=== PATIENT | female | born 1960 | race Caucasian/White ===

== ENCOUNTER → 2016-04-24 | Outpatient (CLI) | payer OTHER | LOC: FIMAGING 09:56 | DX: Z12.31 Encounter for screening mammogram for malignant neoplasm of breast (principal); Z85.3 Personal history of malignant neoplasm of breast | CPT/HCPCS: G0202 ==

== ENCOUNTER → 2017-11-27 | Outpatient (CLI) | payer OTHER | LOC: BRMIMAGING 09:13 | PROVIDERS: ATTEND Surgery | DX: N63.11 Unspecified lump in the right breast, upper outer quadrant (principal); Z80.3 Family history of malignant neoplasm of breast | CPT/HCPCS: 76641-PO ==

== ENCOUNTER → 2017-12-03 | Outpatient (CLI) | payer OTHER ==
[~2017-12-03] MED LIST: BUPIVACAINE 0.5% 30 ML SDV ONE; LIDOCAINE 1% 300 MG/30 ML SDV ONE; THROMBIN (BOVINE) 5,000 UNIT VIAL TP ONE
== END ==
LOC: FIMAGING 07:23
PROVIDERS: ATTEND Internal Medicine Hematology & Oncology
DX: C77.3 Secondary and unspecified malignant neoplasm of axilla and upper limb lymph nodes (principal)

== ENCOUNTER → 2017-12-18 | Outpatient (CLI) | payer OTHER ==
[~2017-12-18] MED LIST changes: -BUPIVACAINE 0.5% 30 ML SDV ONE; +GADOBUTROL 10 ML VIAL IVP ONE; -LIDOCAINE 1% 300 MG/30 ML SDV ONE; -THROMBIN (BOVINE) 5,000 UNIT VIAL TP ONE
== END ==
LOC: FIMAGING 07:20
PROVIDERS: ATTEND Internal Medicine Hematology & Oncology
DX: N63.11 Unspecified lump in the right breast, upper outer quadrant (principal); C77.3 Secondary and unspecified malignant neoplasm of axilla and upper limb lymph nodes; Z80.3 Family history of malignant neoplasm of breast
CPT/HCPCS: 0159T; 77059; A9585; C8908

== ENCOUNTER → 2017-12-31 | Outpatient (CLI) | payer OTHER | LOC: FIMAGING 10:06 | PROVIDERS: ATTEND Internal Medicine Hematology & Oncology | DX: R41.0 Disorientation, unspecified (principal); C50.411 Malignant neoplasm of upper-outer quadrant of right female breast | CPT/HCPCS: A9585 ==

== ENCOUNTER 2018-01-20 12:35 | Observation (INO) | payer OTHER ==
--- NOTE | 2018-01-19 18:32 | PDGENHP ---
History and Physical - Chief Complaint Right breast cancer - History of Present Illness 57yo F with new diagnosis of right breast cancer. She was admitted at [facility] for a PE - chest CT also revealed a riight breast mass. Diagnostic mammogram and ultrasound on 11/27/17 showed a right upper outer ill-defined mass 2.2 x 1.4 x 1.3cm in the 10 o'clock position, 6cm from the nipple. She had a biopsy on which showed normal breast tissue. Lymph node biopsy was significant for infiltrating ductal carcinoma, ER+, WA+ of breast origin. She had a breast MRI on 12/18/17 which showed a nodular spiculated mass in the 9-10 o'clock position , measuring 17 x 20 x 19mm. There was additionally an elongated lobulated area of mass-like enhancement lateral to this lesion in the lateral right breast measuring 48 x 10mm. The MRI showed an enlarged R axillary lymph node with biopsy marker in it. No evidence of contralateral disease. Mother diagnosed with breast cancer in 40s as well as 2 maternal aunts. . LMP 2001. History Information - Allergies/Home Medication List Allergies/Adverse Reactions: BEE STINGS Allergy (Uncoded 01/16/18 14:18) Home Medications: ALPRAZolam [Xanax 1 MG (*)] 1 mg PO DAILY PRN 01/15/18 [Last Taken Unknown] Diclofenac Sodium 1% [Voltaren Gel (*)] 1 roosevelt TP DAILY 01/15/18 [Last Taken Unknown] Levothyroxine [Synthroid 25 mcg (*)] 25 mcg PO DAILY06 01/15/18 [Last Taken Unknown] Lidocaine [Lidoderm] 1 each TP DAILY 01/15/18 [Last Taken Unknown] Ondansetron Odt [Zofran Odt 4 mg (*)] 4 mg PO Q4 PRN 01/15/18 [Last Taken Unknown] Promethazine HCl [Phenergan 25mg (*)] 25 mg PO DAILY PRN 01/15/18 [Last Taken Unknown] Sertraline HCl [Zoloft 50mg (*)] 50 mg PO DAILY 01/15/18 [Last Taken Unknown] Triamterene [Dyrenium 50MG (*)] 25 mg PO DAILY 01/15/18 [Last Taken Unknown] Zolpidem Tartrate [Ambien 5MG (*)] 5 mg PO HS 01/15/18 [Last Taken Unknown] clonIDINE [Catapres-Tts (*)] 0.3 mg TD MO 01/15/18 [Last Taken Unknown] Lovenox 01/16/18 [Last Taken Unknown] I have personally reviewed and updated: family history, medical history, social history, surgical history Past Medical History: Alcohol use. Anxiety. DVT and PE. Hyperlipidemia. Hypertension. Hypothyroidism. IgG deficiency. Lyme disease. - Surgical History Additional surgical history: Elbow surgery 1989. Wrist surgery 2010 - Family History Additional family history: Breast cancer. Malignant melanoma - Social History Smoking Status: Never smoked Additional social history: Drinks alcohol - currently. Non-smoker. No recreational drug use Review of Systems Review of Systems: ROS: 10pt was reviewed & negative except for what was stated in HPI & below Physical Exam Physical Exam: Gen: WDWN woman NAD HEENT: NCAT, no hearing deficits, PER, MMM Resp: CTAB, no increased WOB CV: RRR Breast: palpable right breast mass upper outer. No other breast masses. 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 Discussed risks of surgery including heart attack, stroke, blood clots or . Discussed risk of infection, bleeding, damage to surrounding structures, lymphedema or need for additional procedures. Overnight observation. Will receive antibiotics OCTOR. All questions answered to patient' s satisfaction
[2018-01-20] MEDS ORDERED: ceFAZolin 2 GM/DEXTROSE 100 ML IV ONE (14:01)
[2018-01-20] MEDS ORDERED: LR 1,000 ML IV ONE (14:03)
[2018-01-20] MEDS ORDERED: BUPIVACAINE 0.5% 30 ML SDV ONE (14:22)
--- NOTE | 2018-01-20 14:59 | CPEKG ---
Test Reason : OPEN Blood Pressure : / mmHG Vent. Rate : 060 BPM Atrial Rate : 060 BPM P-R Int : 173 ms QRS Dur : 098 ms QT Int : 463 ms P-R-T Axes : 042 032 028 degrees QTc Int : 463 ms Sinus rhythm Low voltage, precordial leads Confirmed by Christopher Khan ([id number]) on 01/20/2018 2:59:13 PM Referred By: Confirmed By:Christopher Khan
--- NOTE | 2018-01-20 15:18 | GCON ---
INTERNAL MEDICINE CONSULT DATE OF CONSULTATION: 01/20/2018 REFERRING PHYSICIAN: Pauly Chance MD REASON FOR REFERRAL: Medical management in a patient admitted with breast cancer and mastectomy. HISTORY OF PRESENT ILLNESS: The patient is a 57-year-old with a new diagnosis of right-sided breast cancer. She is being admitted today for a mastectomy by Dr. Chance. We being consulted for multiple medical issues. Briefly, she was admitted at [facility] for pulmonary embolism. Her chest CT-A also rev ealed a right breast mass, and diagnostic mammogram and ultrasound verified this on 11/27/2017. She had a biopsy at the end of November; however, lymph node biopsy was significant for infiltrating lu reece carcinoma, ER and NM positive. She subsequently had a breast MRI on December 25, which verified a couple of masses and an enlarged right axillary lymph node. Currently, she is feeling pretty well. Unfortunately, she tripped over a table [facility] and has an ecchymosis on her left eye, and a skin tear and ecchymosis on her right forearm. She, otherwise, feels well. She has had no recent illnesses, fevers, chills. Her weight is been stable. She denies any chest pain, shortness of breath, or cough. She denies any abdominal complaints. Sh e denies lower extremity edema. She has chronic joint pain, which is unchanged. No other neurologic complaints or bone pain. REVIEW OF SYSTEMS: A 10-point review of systems was done and is negative, except as stated in the HP I. PAST MEDICAL HISTORY: 1. Hypothyroidism, on replacement. 2. History of IgG deficiency, currently on IVIG, which has been held until her cancer issues have be en resolved. She sees an road production general manager in [place], Dr. Barbosa. 3. History of alcohol abuse/use. She has cut down to 2 ounces per day. 4. Anxiety, PTSD. She is on a number of medications, including Zoloft, Xanax, and propranolol as ne eded. 5. Insomnia, on Ambien. 6. History of hypertension, currently on clonidine patch. She takes triamterene as needed for fluid overload. 7. Dyslipidemia. 8. Gastroesophageal reflux disease. 9. Pulmonary embolism, on chronic anticoagulation. She had failed Xarelto and has currently been on Lovenox b.i.d. for the last 6 months. She is followed by Dr. Melendez as an outpatient. 10. Chronic pain, currently on Lidoderm patch, as well as diclofenac ointment. CURRENT MEDICATIONS: Please see medication reconciliation form. ALLERGIES: To bee stings. SOCIAL HISTORY: She denies current tobacco use. She does use marijuana in this CBD form. She drink s 2 ounces per day and admits to trying to cut down. FAMILY HISTORY: Significant for breast cancer in her mother at age 40 and an aunt. PHYSICAL EXAMINATION: VITAL SIGNS: She is afebrile. Heart rate 66, blood pressure 119/92, respirat ions. She is 96% on room air. GENERAL: She is a slightly overweight 57-year-old. She is in no dis tress. She is alert and oriented. Her speech is clear and fluent. HEENT: Pupils equal. Extraocul ar movements intact. Mucous membranes moist. Oropharynx is clear. NECK: Supple. No adenopathy. HEART: Regular rate and rhythm. No obvious murmur, gallop, or rub. LUNGS: Clear bilaterally witho ut wheeze or rhonchi. ABDOMEN: Soft, obese, nontender. No masses. EXTREMITIES: No clubbing, cyan osis, or edema. MUSCULOSKELETAL: No joint deformities or obvious effusions. NEUROLOGIC: She is mo ving all 4 extremities. She is alert and oriented. Her speech is fluent. SKIN: She does have an a brasion/skin tear and ecchymosis on her right forearm. She also has ecchymosis on her left eye. PSY CHIATRIC: Her mood is appropriate. ASSESSMENT/PLAN: A 57-year-old admitted with right breast invasive ductal carcinoma with lymph node involvement is admitted for bilateral mastectomy with reconstruction, right axillary dissection, and left sentinel node biopsy. She has a number of medical issues we will follow while she is here most importantly. 1. History of pulmonary embolism. Currently on Lovenox after failing of Xarelto as an outpatient. She has held her Lovenox for the last 24 hours preoperatively. Likely would like to resume this as s oon as possible per Dr. Chance either tonight or tomorrow morning. 2. Hypothyroidism, on replacement. Continue her usual dose. 3. History of IgG deficiency. Currently followed by an road production general manager in [place] where she gets IVIG infusions. This is on hold until she completes her cancer workup and will defer to Dr. Al willis that can be resumed. He will likely need to evaluate her labs. 4. Alcoholism. She states that she has cut down to 2 ounces daily and denies any acute withdrawal s ymptoms. We will monitor her closely for active withdrawal while she is here. 5. Anxiety and posttraumatic stress disorder. Currently stable on Zoloft and Xanax. She recently d id titrate off a number of other medications. 6. Chronic insomnia. On Ambien. 7. Hypertension. Slightly elevated. We will continue her usual medications when she is able to eat . 8. Dyslipidemia, mild. 9. Gastroesophageal reflux disease, asymptomatic. 10. Cyclic vomiting. Currently takes Phenergan and Zofran on an as-needed basis. Thank you for the consultation. We will continue to follow the patient during her hospitalization. /[id number]/MODL
[2018-01-20] MEDS ORDERED: MIDAZOLAM 2 MG/2 ML VIAL IVP ONE ×2 (15:45→17:31)
--- NOTE | 2018-01-20 17:16 | PDANEPAE ---
ANE History of Present Illness BL mastectomies left sentinel node right axillary node dissection ANE Past Medical History - Cardiovascular History Hx Hypertension: Yes Hx Arrhythmias: No Hx Chest Pain: No Hx Coronary Artery / Peripheral Vascular Disease: No Hx CHF / Valvular Disease: No Hx Palpitations: No Cardiovascular History Comment: high chol. pcp monitors - Pulmonary History Hx COPD: No Hx Asthma/Reactive Airway Disease: No Hx Recent Upper Respiratory Infection: No Hx Oxygen in Use at Home: No Hx Sleep Apnea: No Sleep Apnea Screening Result - Last Documented: Negative Pulmonary History Comment: hx of PE's first week in october 2017- on lovenox - Neurologic History Hx Cerebrovascular Accident: No Hx Seizures: Yes Hx Dementia: No Neurologic History Comment: unknown reason for seizures- last seizure has been at least 6 months- 1 year ago - Endocrine History Hx Diabetes: No Endocrine History Comment: hypothyroidism - Renal History Hx Renal Disorders: Yes Renal History Comment: "dented kidney" from a previous surgery- functions normally - Liver History Hx Hepatic Disorders: No - Neurological & Psychiatric Hx Hx Neurological and Psychiatric Disorders: Yes Neurological / Psychiatric History Comment: anxiety - Cancer History Hx Cancer: Yes Cancer History Comment: breast cancer currently - Congenital Disorder History Hx Congenital Disorders: No - GI History Hx Gastrointestinal Disorders: No - Other Health History Other Health History: lyme disease- dx'd 2013. wears glasses for driving only - Chronic Pain History Chronic Pain: Yes (lower back) - Surgical History Prior Surgeries: right knee scope surgery 2013 ANE Review of Systems Review of Systems: - Exercise capacity METS (RN): 3 METS ANE Patient History - Allergies Allergies/Adverse Reactions: BEE STINGS Allergy (Uncoded 01/16/18 14:18) - Home Medications Home Medications: ALPRAZolam [Xanax 1 MG (*)] 1 mg PO DAILY PRN 01/15/18 [Last Taken 01/20/18] Diclofenac Sodium 1% [Voltaren Gel (*)] 1 roosevelt TP DAILY 01/15/18 [Last Taken ] Levothyroxine [Synthroid 25 mcg (*)] 25 mcg PO DAILY06 01/15/18 [Last Taken ] Lidocaine [Lidoderm] 1 each TP DAILY 01/15/18 [Last Taken 01/20/18] Ondansetron Odt [Zofran Odt 4 mg (*)] 4 mg PO Q4 PRN 01/15/18 [Last Taken ] Promethazine HCl [Phenergan 25mg (*)] 25 mg PO DAILY PRN 01/15/18 [Last Taken 1 Week Ago ~01/13/18] Sertraline HCl [Zoloft 50mg (*)] 50 mg PO DAILY 01/15/18 [Last Taken 01/20/18] Triamterene [Dyrenium 50MG (*)] 25 mg PO DAILY 01/15/18 [Last Taken Unknown] Zolpidem Tartrate [Ambien 5MG (*)] 5 mg PO HS 01/15/18 [Last Taken 01/19/18] clonIDINE [Catapres-Tts (*)] 0.3 mg TD MO 01/15/18 [Last Taken Unknown] Enoxaparin [Lovenox 100 MG (*)] 100 mg SQ Q12H 01/16/18 [Last Taken 01/19/18] - NPO status NPO Status: no food or drink >8 hours NPO Since - Liquids (Date): 01/20/18 NPO Since - Liquids (Time): 12:00 NPO Since - Solids (Date): 01/20/18 NPO Since - Solids (Time): 07:30 - Anes Hx Anes Hx: no prior problems - Smoking Hx Smoking Status: Never smoked Marijuana use: Yes - Alcohol Use Alcohol Use: Other (2 oz/day) - Family Anes Hx Family Hx Anesthesia Complications: none ANE Labs/Vital Signs - Labs Result Diagrams: 01/20/18 14:35 - Vital Signs Blood Pressure: 119/92 Heart Rate: 66 Respiratory Rate: 16 O2 Sat (%): 96 Height: 175.26 cm Weight: 95.254 kg ANE Physical Exam - Airway Neck exam: FROM Mallampati Score: Class 2 Mouth exam: normal dental/mouth exam - Pulmonary Pulmonary: no respiratory distress, no rales or rhonchi - Cardiovascular Cardiovascular: regular rate and rhythym, no murmur, rub, or gallop - ASA Status ASA Status: III ANE Anesthesia Plan Anesthesia Plan: general endotracheal anesthesia
[2018-01-20] MEDS ORDERED: THROMBIN (BOVINE) 20,000 UNIT SPRAY TP ONE ×2 (17:36→19:35)
[2018-01-20] MEDS ORDERED: fentaNYL 250 MCG/5 ML INJ ONE ×2 (17:48→19:48)
[2018-01-20] MEDS ORDERED: PROPOFOL/EMULSION 500 MG/50 ML BOTTLE IV ONE ×2 (17:49)
--- NOTE | 2018-01-20 18:08 | PDHPUP ---
History & Physical Update H&P update statement: This history and physical update is based on an assessment of the patient which was completed after admission or registration (within 24 hours), but prior to the surgery/procedure. H&P update: H&P reviewed & patient examined, no change in patient's condition since H&P completed, changes noted (fell, hematoma right arm. will evacuate and place vac)
[2018-01-20] MEDS ORDERED: fentaNYL 100 MCG/2 ML INJ ONE ×2 (18:37)
[2018-01-20] MEDS ORDERED: DEXAMETHASONE 4 MG/ML VIAL ONE ×2 (18:48)
[2018-01-20] MEDS ORDERED: GLYCOPYRROLATE 0.2 MG/1 ML VIAL ONE (18:48)
[2018-01-20] MEDS ORDERED: ONDANSETRON 4 MG/2 ML VIAL ONE (18:48)
[2018-01-20] MEDS ORDERED: HYDROmorphONE/DILAUDID 2 MG/ML INJ ONE (18:52)
[2018-01-20] MEDS ORDERED: LABETALOL HCL 5 MG/ML 20 ML MDV ONE (18:57)
[2018-01-20] MEDS ORDERED: PROPOFOL 200 MG/20 ML VIAL ONE ×2 (19:48)
[2018-01-20] MEDS ORDERED: ONDANSETRON 4 MG/2 ML VIAL IVP PRN ×2 (20:14→20:57)
[2018-01-20] MEDS ORDERED: ACETAMINOPHEN 325 MG TAB PO PRN (20:14)
[2018-01-20] MEDS ORDERED: ONDANSETRON DISINTEGRATING 4 MG TAB PO PRN (20:14)
[2018-01-20] MEDS ORDERED: diphenhydrAMINE 25 MG CAP PO PRN (20:14)
--- NOTE | 2018-01-20 20:14 | POSTOPPROG ---
Post Op Note Date of Operation: 01/23/18 Surgeon: Paris Andrea Neurology Professor: ignacio Anesthesiologist: koko Anesthesia: GET(General Endotracheal) Pre-op Diagnosis: R breast metastatic cancer. Traumatic hematoma Post-op Diagnosis: same Indication: 57yo F with breast cancer and traumatic hematoma Procedure: B mastectomy. L SLN bx. R ax dissection. Debride skin/soft tissue with vac Findings: wound measures 5x5x 1cm Inf/Abcess present in the surg proc area at time of surgery?: Yes Depth: Superfical (Skin SQ) EBL: 50-100 Drains: Abel Dominguez Specimen(s): R breast R axillary contents L breast L SLN
[2018-01-20] MEDS ORDERED: ALPRAZolam 1 MG TAB PO PRN (20:17)
[2018-01-20] MEDS ORDERED: PROMETHAZINE HCL 25 MG TAB PO PRN (20:17)
[2018-01-20] MEDS ORDERED: NALOXONE HCL 0.4 MG/ML INJ IVP PRN (20:57)
[2018-01-20] MEDS ORDERED: HYDROmorphONE/DILAUDID 2 MG/ML INJ IVP PRN (20:57)
[2018-01-20] MEDS ORDERED: fentaNYL 100 MCG/2 ML INJ IVP PRN (20:57)
[2018-01-20] MEDS ORDERED: hydrALAZINE 20 MG/ML VIAL IVP PRN (21:05)
[2018-01-20] MEDS: HYDROCODONE/APAP 5/325 TAB PO PRN (22:16)
[2018-01-21] MEDS: ZOLPIDEM TARTRATE 5 MG TAB PO SCH ×2 (00:14→23:47)
[2018-01-21] MEDS: ENOXAPARIN 100 MG/ML SYR SC SCH ×2 (00:14→12:31)
[2018-01-21] MEDS: LEVOTHYROXINE 25 MCG TAB PO SCH (05:25)
[2018-01-21] MEDS: HYDROCODONE/APAP 5/325 TAB PO PRN (05:28)
[2018-01-21] MEDS: SERTRALINE HCL 50 MG TAB PO SCH (08:05)
[2018-01-21] MEDS ORDERED: TRIAMTERENE 50 MG CAP PO SCH (09:00)
--- NOTE | 2018-01-21 09:44 | SOAPPROG ---
SOAP Progress Note Assessment/Plan: Subjective: Annabelle is a 57 year old female POD #1 s/p bilateral mastectomy with L sentinel lymph node resection and R axillary dissection. She also underwent a R arm hematoma debridement. The patient is awake and alert and reports an uneventful night. She currently denies nausea, vomiting, fever. She states her pain is well controlled with IV morphine (last dose 2 mg @ 07:30am and PO [place] (last dose 10mg @ 05:30am). She denies having a BM today but has positive flatus. She reports no problem with urination. She is ambulating without assistance. She ate "a small breakfast" this morning. Objective: Vital signs stable throughout night per nursing. Most recent vitals @ 08:30am: BP: 103/69, Pulse 67, SpO2 98% RA, Temp: 36.5 C. Lungs CTAB Regular rate Dressings are clean and dry without surrounding erythema. No purulent discharge or drainage noted. Her right arm lesion has a wound vac attached to suction with no surrounding erythema and no fluid output. She has [address] all draining serosanguinous fluid. R HIGINIO drain output #1: 60mL. R Breast HIGINIO drain output: 110mL. L breast HIGINIO drain output: 15mL. Assessment: 57 y/o F POD #1 s/p bilateral mastectomy with L sentinel lymph node resection and R axillary dissection. R arm hematoma debridement. Depression Alcohol abuse Hypothyroid History of Pulmonary embolysm Plan: 1. Plan to wean off IV morphine and attempt PO pain control with Hydrocodone/ APAP. 2. Zofran 4mg PO q4h PRN nausea. 2. Continue home medications: -Sertraline 50mg PO QD -Zolpidem 5mg PO qHS -Levothyroxine 25mcg PO QD -Diclofenac topical gel QD -Clonidine .3mg TD MO -Lovenox 100mg SC q12h. HCTZ Traumatic arm hematoma - measured 5x5x1 cm at surgery 01/21/18 09:16 01/21/18 15:00 01/21/18 15:02 Objective: Vital Signs Temp Pulse Resp BP Pulse Ox 36.5 C 67 14 103/69 98 01/21/18 08:08 01/21/18 08:08 01/21/18 08:08 01/21/18 08:08 01/21/18 08:08 Laboratory Results 01/20/18 14:35 01/20/18 01/21/18 01/22/18 05:59 05:59 05:59 Intake Total 1750 Output Total 435 Balance 1315 ICD10 Worksheet Patient Problems: Problems Problem Status Onset Abdominal pain Acute Dehydration Acute Nausea & vomiting Acute
[2018-01-21] MEDS: DICLOFENAC SODIUM 1% 100 GM GEL TP SCH (10:21)
[2018-01-21] MEDS: LIDOCAINE 4%/MENTHOL 1% PATCH TD SCH (10:21)
[2018-01-21] MEDS: oxyCODONE IR 5 MG TAB PO PRN ×4 (10:53→21:11)
[2018-01-21] MEDS ORDERED: HYDROCHLOROTHIAZIDE 25 MG TAB PO PRN (15:02)
--- NOTE | 2018-01-21 15:37 | GOP ---
DATE OF OPERATION: 12/10/2017 SURGEON: Pauly Chance MD DIRECTOR OF AGRICULTURE: ESPERANZA Wilson ANESTHESIA: General. ANESTHESIOLOGIST: Annabelle Moya MD PREOPERATIVE DIAGNOSIS: 1. Right breast lower inner cancer with positive axillary nodes. 2. Traumatic wound with retained hematoma, right forearm. POSTOPERATIVE DIAGNOSIS: 1. Right breast lower inner cancer with positive axillary nodes. 2. Traumatic wound with retained hematoma, right forearm. PROCEDURE PERFORMED: 1. Bilateral mastectomy. 2. Left sentinel lymph node. 3. Right axillary dissection. 4. Evacuation of traumatic wound hematoma. FINDINGS: She had palpable lymphadenopathy on the right side. The wound measures 5 x 5 x 1 cm down to the level of the fascia. SPECIMENS: 1. Left breast, short superior, long lateral. 2. Left sentinel lymph node. 3. Right breast, short superior, long lateral. 4. Additional right upper outer breast tissue, ink knapp new margin. 1. Right axillary contents. 5. ESTIMATED BLOOD LOSS: 100 cc. INDICATIONS: The patient is a 57-year-old woman who developed breast cancer. Her workup included positive axillary nodes but negative for distant metastatic disease. A few days prior to surgery, she fell and developed a hematoma on her right forearm. DESCRIPTION OF PROCEDURE: The patient was brought into the operating room, placed supine on the table, and general anesthesia was administered. Her bilateral breast axillae were prepped and draped in the usual sterile fashion. I made an ellipse around her left chest. I created superior and inferior skin flaps. My dissection occurred to the clavicle, sternum, inframammary fold and anterior axillary line. I removed the breast from the pectoralis fascia. It was marked short superior, long lateral. Hemostasis was achieved. I used a gamma probe to identify the left sentinel lymph node. I broke into the axillary space and carefully dissected until I found the node that was hot. I excised this. The background was very quiet. Hemostasis was achieved. A drain was placed and sutured in place with 3-0 nylon. The skin was closed with 3-0 Vicryl, followed by 4-0 Monocryl. Next, in a similar fashion, I began my dissection on the right side. Again, my dissection occurred to the clavicle, sternum, inframammary fold, anterior axillary line. I removed the breast from the pectoralis fascia. When I felt the skin flaps, there was an additional area in the upper outer quadrant that felt thick. I excised this and inked the new margin black. Next, I began my axillary dissection. I was able to identify the long thoracic nerve, the thoracodorsal nerve bundle and protect these from harm. I grasped the russell tissue that was bulky and carefully excised this. This was submitted to Pathology for permanent. Hemostasis achieved. I placed a drain into her axilla as well as one under the skin flaps. Each was sewn into place with 3-0 nylon. The skin was closed with 3-0 Vicryl, followed by 4-0 Monocryl. Sterile silver Mepilex dressings were applied. Next, I prepped her right arm with Betadine and draped it with towels. I used cautery to excise the retained hematoma. A large amount of old clotted blood was expressed. The wound measures 5 x 5 x 1 cm. It goes down to the fascia. Hemostasis was achieved with electrocautery. A wound VAC was placed. The patient was awakened in the operating room, extubated, transferred to PACU in stable condition. /[id number]/MODL MTDD
--- NOTE | 2018-01-21 15:55 | ASMTCMCOM ---
CM Note CM Note Notes: Patient plan of care reviewed with surgeon. Lenora Belkys is also following the patient. She requires a wound vac to right forearm which the order to [facility] was initiated but required additional documentation from physician. New op report faxed to [facility] approval pending. HHC via [facility] upon discharge to home. CM to follow. Plan: Home with [facility] Date Signed: 01/21/2018 03:54 PM Electronically Signed By:Vickie Reyes RN
--- NOTE | 2018-01-21 16:46 | HOSPPROG ---
Hospitalist Progress Note Assessment/Plan: #Right mastectomy: POD#1. Care per Dr. Cahnce #Acute pain: not controlled this morning, change to oxycodone #Pulmonary embolism: treatment-dose Lovenox #Etoh dependence: counseled on cessation. No signs withdrawal #Anxiety/PTSD: Xanax, Zoloft #Hypothyroidism: LT4 #HTN: clonidine patch #GERD:stable Please call if questions Subjective: pain 10/17 right breast Objective: Vital Signs Temp Pulse Resp BP Pulse Ox 36.9 C 63 18 133/88 H 97 01/21/18 16:00 01/21/18 16:00 01/21/18 16:00 01/21/18 16:00 01/21/18 16:00 Laboratory Results 01/20/18 14:35 01/20/18 01/21/18 01/22/18 05:59 05:59 05:59 Intake Total 1750 Output Total 435 55 Balance 1315 -55 - Time Spent With Patient Time Spent with Patient: greater than 25 minutes Time Spent with Patient: Greater than 25 minutes spent on this patients care, greater than 50% of time spent counseling, educating, and coordinating care regarding the above mentioned plan. - Physical Exam Constitutional: no apparent distress Eyes: PERRL Ears, Nose, Mouth, Throat: moist mucous membranes Cardiovascular: regular rate and rhythym Respiratory: no respiratory distress Gastrointestinal: normoactive bowel sounds Genitourinary: No chavarria in urethra Musculoskeletal: full muscle strength, other (right breast surgical incision dressed) Neurologic: AAOx3, CN II-XII Intact, other (no tremor or tongue fasiculations) Psychiatric: thought process linear ICD10 Worksheet Patient Problems: Problems Problem Status Onset Abdominal pain Acute Dehydration Acute Nausea & vomiting Acute
[2018-01-21] MEDS: CEPACOL LOZENGE PO PRN ×2 (17:09→23:47)
[2018-01-21] MEDS ORDERED: LORazepam 1 MG TAB PO PRN (17:14)
[2018-01-21] MEDS ORDERED: LORazepam 2 MG/ML INJ IVP PRN (17:14)
[2018-01-21] MEDS ORDERED: FLUMAZENIL 0.5 MG/5 ML MDV IVP PRN (17:14)
[2018-01-21] MEDS: THIAMINE HCL 500 MG in NS 100 ML IV SCH (17:51)
[2018-01-21] MEDS ORDERED: MAGNESIUM HYDROXIDE 30 ML UDCUP PO PRN (22:17)
[2018-01-21] MEDS ORDERED: POLYETHYLENE GLYCOL 3350 17 GM PKT PO PRN (22:17)
[2018-01-21] MEDS ORDERED: BISACODYL 10 MG SUPP PR PRN (22:17)
[2018-01-21] MEDS ORDERED: LACTULOSE 20 GM/30 ML UDCUP PO PRN (22:17)
[2018-01-22] MEDS: ENOXAPARIN 100 MG/ML SYR SC SCH ×2 (00:58→12:05)
[2018-01-22] MEDS: oxyCODONE IR 5 MG TAB PO PRN ×3 (00:58→10:19)
[2018-01-22] MEDS: LEVOTHYROXINE 25 MCG TAB PO SCH (06:21)
[2018-01-22 08:36] VITALS: BP 114/80
[2018-01-22] MEDS ORDERED: SENNOSIDES/DOCUSATE SODIUM TAB PO SCH (09:00)
[2018-01-22] MEDS: LIDOCAINE 4%/MENTHOL 1% PATCH TD SCH (09:51)
[2018-01-22] MEDS: DICLOFENAC SODIUM 1% 100 GM GEL TP SCH (09:51)
[2018-01-22] MEDS: SERTRALINE HCL 50 MG TAB PO SCH (10:08)
[2018-01-22] MEDS: THIAMINE HCL 500 MG in NS 100 ML IV SCH (10:09)
--- NOTE | 2018-01-22 10:19 | PDIAF ---
- Diagnosis Diagnosis: breast cancer and R arm wound Code Status: Full Code - Medication Management Discharge Medications: electronically signed and located in the Home Medication List. - Orders Services needed: Home Care, Registered Nurse Home Care Face to Face: I certify that this patient was under my care and that I had the required [id number] encounter meeting the encounter requirements on the discharge day. My findings support the fact that the patient is homebound as defined in Home Care Face to Face Continued: CMS Chapter 7 Medicare Benefits Manual 30.1.1 , The condition of the patient is such that there exists a normal inability to leave home and consequently, leaving home would require a considerable and taxing effort. Diet Recommendation: no restrictions on diet Wound Care Instructions: check and record HIGINIO drain 2 x per day. I will remove when less than 20 cc/day x 2 days in a row. Change wound vac 3x per week. NO BP or blood draw R arm Additional Instructions: Librium taper per Dr. Parsons Anticoagulation for blood clot per Dr. Melendez. Call triage at [facility] [phone] to get prescription for anticoagulation Check and record HIGINIO drain 2x per day I will remove when less than 20 ml/24 hours for 2 days in a row Wound vac change 3x per week - Follow Up Care Current Providers and Referrals: JANAE PARSONS [Other] Pauly Chance MD [Medical Doctor] - (Paris Andrea 01/28/2018 at 10:45)
--- NOTE | 2018-01-22 10:30 | SOAPPROG ---
SOAP Progress Note Assessment/Plan: Subjective: Annabelle is a 57 year old female POD #2 s/p bilateral mastectomy with L sentinel lymph node resection and R axillary dissection. She also underwent a R arm hematoma debridement. The patient is awake and alert and reports an uneventful night. She reports her pain is well controlled. She is currently taking Oxycodone PO 15mg q4H last dose 6am. Current pain 5/10. No complain of nausea, vomiting, chills or fever. Objective: Vital signs stable throughout night per nursing. Most recent vitals @ 05:30am: BP: 126/88, Pulse 67, Resp 16, SpO2 95% RA, Temp: 36.6 C. Lungs CTAB Regular rate Right dressing showing some scant fluid on inferior, lateral margin. Wound without surrounding erythema. No purulent discharge or drainage noted. Hematoma superior to R incision remains unchanged since last night. Her right arm lesion has a wound vac attached to suction with no surrounding erythema and no fluid output. She has [address] all draining serosanguinous fluid. R HIGINIO drain output #1: 60mL. R Breast HIGINIO drain output: 85mL. L breast HIGINIO drain output: 0mL. Assessment: 57 y/o F POD #1 s/p bilateral mastectomy with L sentinel lymph node resection and R axillary dissection. R arm hematoma debridement. Depression Alcohol abuse Hypothyroid History of Pulmonary embolism Plan 1. Discharge today. 2. Rx Oxycodone 5mg, 1-3 tabs PO prn pain #60 3. Continue home medications: -Sertraline 50mg PO QD -Zolpidem 5mg PO qHS -Levothyroxine 25mcg PO QD -Diclofenac topical gel QD -Clonidine .3mg TD MO -Lovenox 100mg SC q12h. HCTZ Traumatic arm hematoma - measured 5x5x1 cm at surgery Objective: Vital Signs Temp Pulse Resp BP Pulse Ox 36.8 C 84 16 114/80 93 01/22/18 08:00 01/22/18 08:00 01/22/18 08:00 01/22/18 08:00 01/22/18 08:00 Laboratory Results 01/20/18 14:35 01/21/18 01/22/18 01/23/18 05:59 05:59 05:59 Intake Total 1750 350 Output Total 435 145 Balance 1315 205 ICD10 Worksheet Patient Problems: Problems Problem Status Onset Nausea & vomiting Acute Abdominal pain Acute Dehydration Acute
--- NOTE | 2018-01-22 10:31 | ASDISCHSUM ---
Discharge Information Plan Status:Home with Home Health Medically Cleared to Leave:01/21/2018 Discharge Date:01/22/2018 02:05 PM D/C Disposition:Home Health Service ADT D/C Disposition:Home Health Service Projected Discharge Date:01/22/2018 11:00 AM Transportation at D/C: Discharge Delay Reason: Follow-Up Date:01/22/2018 11:00 AM Discharge Slot: Final Diagnosis: Placement Information Referral Type:*Home Health Care Services Referral ID:[id number] Provider Name:[facility] Address 1:[address] [place] [address] Address 2: City:[place] Selection Factors: State:[place] Patient Contact Information Contact Name:AMNA Relationship: Address:[facility] [address] [place]:[facility] Phone: State/Zip Code:[place] [address] Email: Financial Information Financial Class:BC Primary Plan Desc:[facility] Primary Plan Number:[id number] Secondary Plan Desc: Secondary Plan Number: Assessment Information LACE LACE Length of stay for Answers: 1 day current admission Comorbidities - select Answers: Any tumor (including all that apply lymphoma or leukemia) Opioid dependence / Chronic pain Other Notes: Hx of DVT/PE; HTN; Lyme disease # of Emergency department Answers: 0 visits in the last 6 months Social determinants Answers: History of substance abuse (ETOH, street drugs, prescription drugs, etc.) Mental health diagnosis (anxiety, depression, pers onality disorders, etc.) Score: 14 Date Signed: 01/22/2018 10:30 AM Electronically Signed By:Vickie Reyes RN [facility] CM Progress Note CM Note CM Note Notes: Patient plan of care reviewed with surgeon. Lenorajim Rizvi is also following the patient. She requires a wound vac to right forearm which the order to [facility] was initiated but required additional documentation from physician. New op report faxed to [facility] approval pending. [facility] upon discharge to home. CM to follow. Plan: Home with [facility] Date Signed: 01/21/2018 03:54 PM Electronically Signed By:Vickie Reyes RN [facility] CM Progress Note CM Note CM Note Notes: Patient has been medically cleared for discharge to home. [facility] to follow for wound vac dressing changes. Patient has f/u with Dr. Chance set up. Address confirmed with patient. [facility] wound vac delivered to room. Forms signed per patient and faxed to [facility] with confirmed receipt CM available shou;lld other needs arise. Plan: Home with HH and wound vac. Date Signed: 01/22/2018 10:39 AM Electronically Signed By:Vickie Reyes RN Intervention Information
--- NOTE | 2018-01-22 10:40 | ASMTCMCOM ---
CM Note CM Note Notes: Patient has been medically cleared for discharge to home. [facility] to follow for wound vac dressing changes. Patient has f/u with Dr. Chance set up. Address confirmed with patient. [facility] wound vac delivered to room. Forms signed per patient and faxed to [facility] with confirmed receipt CM available shou;lld other needs arise. Plan: Home with HHC and wound vac. Date Signed: 01/22/2018 10:39 AM Electronically Signed By:Vickie Reyes RN
--- NOTE | 2018-01-23 19:14 | GDS ---
REASON FOR ADMISSION: 57yo with R breast cancer admitted for surgical intervention, observations, pain control. DIAGNOSES: 1. Breast cancer. 2. Pulmonary embolism, DVT. 3. Depression. 4. Hypothyroidism. 5. EtOH abuse 6. Traumatic RUE hematoma HOSPITAL COURSE: She was taken to the OR by Dr. Chance on 01/20/18 for B mastectomy, R axillary dissection, L SLN biopsy. In addition, she underwent debridement of skin and soft tissue of RUE with evacuation of hematoma and wound vac placement. At the time of dictation pathology is pending. She had 3 HIGINIO drains placed, 2x on right, 1x on left. The patient's postoperative hospital stay was grossly uneventfully. Postoperative day #1, the patient's pain was well controlled with IV pain meds, p.o. diet advanced, and passing flatus. By postoperative day #2, her pain was controlled with p.o. oxycodone. She was restarted on chronic anticoagulation. She was tolerating a regular diet and ambulating independently. CONDITION: She is being discharged home in stable condition with home health care. Pain is controlled with oral pain meds, tolerating regular diet, ambulating independently DISCHARGE MEDS: Instructed to resume home medications, see EMR for further details. Rx in chart DISCHARGE FOLLOW-UP AND INSTRUCTIONS: Empty and record HIGINIO drain output daily. FU 1 week for wound check/HIGINIO drain removal. Call with worsening symptoms. Homecare change dressing 3x per week. MTDD
[2018-01-24] MEDS ORDERED: CEFAZOLIN 2 GM/DEXTROSE/100 ML BAG IV ONE ×2 (07:57→08:02)
[2018-01-24] MEDS ORDERED: THIAMINE HCL 100 MG TAB PO SCH (09:00)
== END 2018-01-22 14:05 | disposition home health service (06) ==
LOC: F3E 12:57 → F1N 15:25
PROVIDERS: ADMIT Surgery; ATTEND Surgery
PROC: 0H9DXZZ Drainage of Right Lower Arm Skin, External Approach (ICD-10-PCS; principal; 2018-01-20 16:15)
PROC: 07B60ZX Excision of Left Axillary Lymphatic, Open Approach, Diagnostic (ICD-10-PCS; principal; 2018-01-20 16:15)
PROC: 0HTV0ZZ Resection of Bilateral Breast, Open Approach (ICD-10-PCS; principal; 2018-01-20 16:15)
PROC: 07B50ZX Excision of Right Axillary Lymphatic, Open Approach, Diagnostic (ICD-10-PCS; principal; 2018-01-20 16:15)
PROC: 3E0W3HZ Introduction of Radioactive Substance into Lymphatics, Percutaneous Approach (ICD-10-PCS; principal; 2018-01-20 16:15)
DX: C50.411 Malignant neoplasm of upper-outer quadrant of right female breast (principal); C77.9 Secondary and unspecified malignant neoplasm of lymph node, unspecified; S50.11XA Contusion of right forearm, initial encounter; W01.198A Fall on same level from slipping, tripping and stumbling with subsequent striking against other object, initial encounter; G89.18 Other acute postprocedural pain; F10.20 Alcohol dependence, uncomplicated; F32.9 Major depressive disorder, single episode, unspecified; E03.9 Hypothyroidism, unspecified; E78.5 Hyperlipidemia, unspecified; I10 Essential (primary) hypertension; F41.9 Anxiety disorder, unspecified; D80.3 Selective deficiency of immunoglobulin G [IgG] subclasses; G47.00 Insomnia, unspecified; K21.9 Gastro-esophageal reflux disease without esophagitis; G89.29 Other chronic pain; F43.10 Post-traumatic stress disorder, unspecified; Z17.0 Estrogen receptor positive status [ER+]; Z79.01 Long term (current) use of anticoagulants; Z86.711 Personal history of pulmonary embolism; Z80.3 Family history of malignant neoplasm of breast
CPT/HCPCS: 10140; 19303; 38500; 38525; 78195; 93005; A9520; G0378; J0690; J1100; J1170; J1650; J2250; J2270; J2405; J2704; J3010; J3411

== ENCOUNTER 2018-02-23 09:29 | Day surgery (SDC) | payer OTHER ==
[2018-02-23] MEDS ORDERED: fentaNYL 100 MCG/2 ML INJ IVP PRN (10:11)
[2018-02-23] MEDS ORDERED: NALOXONE HCL 0.4 MG/ML INJ IVP PRN (10:11)
[2018-02-23] MEDS ORDERED: MIDAZOLAM 2 MG/2 ML VIAL IVP PRN (10:11)
[2018-02-23] MEDS ORDERED: FLUMAZENIL 0.5 MG/5 ML MDV IVP PRN (10:11)
[2018-02-23] MEDS ORDERED: NS 1,000 ML IV SCH (10:15)
--- NOTE | 2018-02-23 10:33 | PDRADPRE ---
Radiology History & Physical Indication for procedure: other (IVC filter) Home medications: ALPRAZolam [Xanax 1 MG (*)] 1 - 2 mg PO DAILY PRN 01/15/18 [Last Taken 01/20/18] Diclofenac Sodium 1% [Voltaren Gel (*)] 1 roosevelt TP DAILY 01/15/18 [Last Taken ] Levothyroxine [Synthroid 25 mcg (*)] 25 mcg PO DAILY06 01/15/18 [Last Taken ] Lidocaine [Lidoderm] 1 each TP DAILY 01/15/18 [Last Taken 01/22/18] Ondansetron Odt [Zofran Odt 4 mg (*)] 4 mg PO Q4 PRN 01/15/18 [Last Taken ] Promethazine HCl [Phenergan 25mg (*)] 25 mg PO DAILY PRN 01/15/18 [Last Taken ] Sertraline HCl [Zoloft 50mg (*)] 50 mg PO DAILY 01/15/18 [Last Taken 01/23/18] Zolpidem Tartrate [Ambien 5MG (*)] 10 mg PO HS 01/15/18 [Last Taken 01/19/18] clonIDINE [Catapres-Tts (*)] 0.3 mg TD MO 01/15/18 [Last Taken 01/19/18] Enoxaparin [Lovenox 100 MG (*)] 100 mg SQ BID@0730,1930 01/16/18 [Last Taken 07:30] Esomeprazole Magnesium [Nexium] 20 mg PO DAILY 01/21/18 [Last Taken 01/22/18] Hydrochlorothiazide [HCTZ (*)] 25 mg PO DAILY PRN 01/21/18 [Last Taken Unknown] Benzocaine/Menthol 22/06 [Cepacol Lozenge] 1 ea PO PRN PRN 01/23/18 [Last Taken Unknown] chlordiazePOXIDE [Librium 25 mg (*)] 0 mg PO AD 01/23/18 [Last Taken Unknown] Allergies/Adverse Reactions: NKDA Allergy (Unknown, Uncoded 01/22/18 11:44) BEE STINGS Allergy (Uncoded 01/16/18 14:18) Mental status: A&Ox3
--- NOTE | 2018-02-23 10:34 | PDPROPOC ---
Sedation Plan of Care ASA Classification: ASA 2 Mallampati Score: Class 2 Mallampati Reference Image:
[2018-02-23] MEDS ORDERED: ONDANSETRON 4 MG/2 ML VIAL IVP PRN (11:35)
[2018-02-23] MEDS ORDERED: ACETAMINOPHEN 325 MG TAB PO PRN (11:35)
[2018-02-23] MEDS ORDERED: oxyCODONE IR 5 MG TAB PO PRN (11:36)
[2018-02-23] MEDS ORDERED: IOPAMIDOL (ISOVUE-300) 100 ML BTL ONE (11:50)
[2018-02-23 12:31] VITALS: BP 122/86
== END 2018-02-23 13:00 | disposition home or self-care (01) ==
LOC: FIMAGING 09:29
PROVIDERS: ATTEND Internal Medicine Hematology & Oncology
DX: Z45.89 Encounter for adjustment and management of other implanted devices (principal); C50.411 Malignant neoplasm of upper-outer quadrant of right female breast; D68.51 Activated protein C resistance; I10 Essential (primary) hypertension; E03.9 Hypothyroidism, unspecified; F41.9 Anxiety disorder, unspecified; K21.9 Gastro-esophageal reflux disease without esophagitis; A69.20 Lyme disease, unspecified; Z79.01 Long term (current) use of anticoagulants; Z86.718 Personal history of other venous thrombosis and embolism; Z86.711 Personal history of pulmonary embolism; Z80.3 Family history of malignant neoplasm of breast; Z90.13 Acquired absence of bilateral breasts and nipples
CPT/HCPCS: 37193; 75825; 76937; 99152; C1769; C1773; C1894; J1644; J2250; J2310; J3010; Q9967

== ENCOUNTER 2018-03-18 04:13 | Observation (INO) | payer OTHER ==
[2018-03-18] MEDS ORDERED: HALOPERIDOL LACT 5 MG/ML INJ IVP ONE ×2 (04:22→05:15)
[2018-03-18] MEDS ORDERED: NS 1,000 ML IV ONE ×2 (04:22)
--- NOTE | 2018-03-18 04:26 | EDPHY ---
H & P Time Seen by Provider: 03/18/18 04:21 HPI/ROS: Chief Complaint: Vomiting HPI: 58-year-old woman with a history of a recurrent vomiting syndrome is presenting with nausea vomiting which began about 14 hr ago. Patient states she has had similar episodes in the past, last was about 3 years ago. She normally takes Phenergan when she has episodes. Patient did take some Phenergan 14 hr ago and then again 9 hr ago. She has been having bilious vomiting. No diarrhea or constipation. She is status post bilateral mastectomy 1 month ago for a breast cancer. She says she has been healing well from this and had no complications. She also has a history of blood clotting disorder in take Xarelto. She has had DVTs in the past. No fevers or chills. No cough. No chest pain or shortness of breath. No abdominal pain. EMS was unable to obtain an IV. They gave her 4 mg of Zofran p.o.. ROS: 10 systems were reviewed and were negative except those elements noted in the HPI. PMH: Cyclic vomiting syndrome, breast cancer Social History: No smoking, no alcohol, no recreational drug use Family History: non-contributory Physical Exam: Gen: Awake, Alert, No Distress HEENT: Nose: no rhinorrhea Eyes: PERRLA, EOMI Mouth: Moist mucosa Neck: Supple, no JVD Chest: nontender, lungs clear to auscultation Heart: S1, S2 normal, no murmur Abd: Soft, non-tender, no guarding Back: no CVA tenderness, no midline tenderness Ext: no edema, non-tender Skin: no rash Neuro: CN II-XII intact, Sensation grossly intact, Strength 5/5 in bilateral upper and lower extremities - Medical/Surgical History Hx Asthma: No Hx Chronic Respiratory Disease: No Hx Diabetes: No Hx Cardiac Disease: Yes Hx Renal Disease: No Hx Cirrhosis: No Hx Alcoholism: No Hx HIV/AIDS: No Hx Splenectomy or Spleen Trauma: No Other PMH: lymes, right knee scope 04/28, HTN, double mastectomy 01/21/2018, unknown clotting disorder, right breast cancer and lymph node removal, dvts, depression/anxiety, osteoarthritism, hypothyroid, hypertension, left ankle complex fracture, PE - Social History Smoking Status: Never smoked Constitutional: Initial Vital Signs Temperature (C) 36.6 C 03/18/18 04:22 Heart Rate 74 03/18/18 04:22 Respiratory Rate 18 03/18/18 04:22 Blood Pressure 176/119 H 03/18/18 04:22 O2 Sat (%) 99 03/18/18 04:22 O2 Delivery Mode Room Air Allergies/Adverse Reactions: NKDA Allergy (Unknown, Uncoded 03/18/18 04:23) BEE STINGS Allergy (Uncoded 03/18/18 04:23) Home Medications: Medication Instructions Recorded ALPRAZolam [Xanax 1 MG (*)] 1 - 2 mg PO DAILY PRN 01/15/18 Diclofenac Sodium 1% [Voltaren Gel 1 roosevelt TP DAILY PRN 01/15/18 (*)] Levothyroxine [Synthroid 25 mcg 25 mcg PO DAILY06 01/15/18 (*)] Lidocaine [Lidoderm] 1 each TP DAILY PRN 01/15/18 Ondansetron Odt [Zofran Odt 4 mg 4 mg PO Q4 PRN 01/15/18 (*)] Promethazine HCl [Phenergan 25mg 25 mg PO DAILY PRN 01/15/18 (*)] Sertraline HCl [Zoloft 50mg (*)] 50 mg PO DAILY 01/15/18 Zolpidem Tartrate [Ambien 5MG (*)] 10 mg PO HS 01/15/18 clonIDINE [Catapres-Tts (*)] 0.3 mg TD MO 01/15/18 Esomeprazole Magnesium [Nexium] 20 mg PO DAILY 01/21/18 Hydrochlorothiazide [HCTZ (*)] 25 mg PO DAILY PRN 01/21/18 Acetaminophen [Tylenol 325mg (*)] 650 mg PO Q6 PRN tab 01/22/18 oxyCODONE IR [Oxycodone Ir (*)] 5 - 15 mg PO Q4HRS PRN #60 tab 01/22/18 Medical Decision Making ED Course/Re-evaluation: 58-year-old woman with history of cyclic vomiting presenting with nausea and vomiting. She has tried Phenergan 2 doses at home without relief. Last episode of this was 3 years ago. Recent bilateral mastectomies. Abdomen is soft and benign. She is afebrile. She has not had any relief with 2 L of normal saline. Two doses of Haldol, dose of ondansetron and a dose of Ativan. I have discussed with Dr. Butts, hospitalist. He will admit to his service. He is suggesting topical capsaicin. - Data Points Laboratory Results: Laboratory Results 03/18/18 04:25 03/18/18 04:25 Sodium REJ Potassium REJ Chloride REJ Carbon Dioxide REJ Anion Gap REJ BUN REJ Creatinine REJ Estimated GFR REJ Glucose REJ Calcium REJ Medications Given: Discontinued Medications Haloperidol Lactate (Haldol Injection) 2.5 mg IVP EDNOW ONE Stop: 03/18/18 04:23 Last Admin: 03/18/18 04:35 Dose: 2.5 mg Haloperidol Lactate (Haldol Injection) 2.5 mg IVP EDNOW ONE Stop: 03/18/18 05:16 Last Admin: 03/18/18 05:19 Dose: 2.5 mg Sodium Chloride (Ns) 1,000 mls @ 0 mls/hr IV ONCE ONE; Wide Open PRN Reason: Protocol Stop: 03/18/18 04:23 Last Admin: 03/18/18 04:35 Dose: 1,000 mls Sodium Chloride (Ns) 1,000 mls @ 0 mls/hr IV ONCE ONE; Wide Open PRN Reason: Protocol Stop: 03/18/18 04:23 Last Admin: 03/18/18 04:35 Dose: 1,000 mls Lorazepam (Ativan Injection) 1 mg IVP EDNOW ONE Stop: 03/18/18 05:08 Last Admin: 03/18/18 05:10 Dose: 1 mg Departure - Departure Disposition: [facility] In[facility] Acute Clinical Impression: Nausea & vomiting, Dehydration Condition: Fair Referrals: NONE *PRIMARY CARE P,. [Primary Care Provider] - As per Instructions
[2018-03-18] MEDS ORDERED: LORazepam 2 MG/ML INJ IVP ONE ×2 (05:07→10:18)
[2018-03-18] MEDS ORDERED: LORazepam 2 MG/ML INJ ONE (05:08)
[2018-03-18] MEDS ORDERED: CAPSACIAN 0.075% CREAM TP ONE (05:54)
[2018-03-18] MEDS ORDERED: ONDANSETRON 4 MG/2 ML VIAL IVP PRN (05:56)
[2018-03-18] MEDS ORDERED: LORazepam 2 MG/ML INJ IVP PRN (05:56)
[2018-03-18] MEDS ORDERED: ONDANSETRON DISINTEGRATING 4 MG TAB PO PRN ×2 (05:56→09:53)
[2018-03-18] MEDS ORDERED: ACETAMINOPHEN 325 MG TAB PO PRN ×2 (05:56→09:53)
[2018-03-18] MEDS ORDERED: NS 1,000 ML IV SCH (06:00)
--- NOTE | 2018-03-18 06:22 | PDGENHP ---
History and Physical - Chief Complaint Nausea, vomiting - History of Present Illness 58 yo F w/ hx of breast CA and DVT/PE presents with nausea and vomiting. The patient tells me that her symptoms started yesterday around 1 PM. She denies symptoms of recent illness such as fever/chills. She also denies sick contacts. She does state that she at [facility] [place], which possibly could have contributed. There is some possible history of cyclic vomiting as she tells me she has been admitted every few years for similar symptoms. She is not on chemotherapy for her breast CA. In the ED her symptoms persist despite 2 L IVF, Zofran, Ativan, and Haldol. She is being admitted for continued management. Case discussed with ED physician Dr. Hernández; records reviewed and summarized above. History Information - Allergies/Home Medication List Allergies/Adverse Reactions: NKDA Allergy (Unknown, Uncoded 03/18/18 04:23) BEE STINGS Allergy (Uncoded 03/18/18 04:23) Home Medications: ALPRAZolam [Xanax 1 MG (*)] 1 - 2 mg PO DAILY PRN 01/15/18 [Last Taken 02/21/18] Diclofenac Sodium 1% [Voltaren Gel (*)] 1 roosevelt TP DAILY PRN 01/15/18 [Last Taken 02/22/18] Levothyroxine [Synthroid 25 mcg (*)] 25 mcg PO DAILY06 01/15/18 [Last Taken ] Lidocaine [Lidoderm] 1 each TP DAILY PRN 01/15/18 [Last Taken 01/22/18] Ondansetron Odt [Zofran Odt 4 mg (*)] 4 mg PO Q4 PRN 01/15/18 [Last Taken ] Promethazine HCl [Phenergan 25mg (*)] 25 mg PO DAILY PRN 01/15/18 [Last Taken ] Sertraline HCl [Zoloft 50mg (*)] 50 mg PO DAILY 01/15/18 [Last Taken 02/23/18] Zolpidem Tartrate [Ambien 5MG (*)] 10 mg PO HS 01/15/18 [Last Taken 02/22/18] clonIDINE [Catapres-Tts (*)] 0.3 mg TD MO 01/15/18 [Last Taken 02/20/18] Esomeprazole Magnesium [Nexium] 20 mg PO DAILY 01/21/18 [Last Taken 02/22/18] Hydrochlorothiazide [HCTZ (*)] 25 mg PO DAILY PRN 01/21/18 [Last Taken Unknown] I have personally reviewed and updated: family history, medical history Past Medical History: Alcohol use. Anxiety. DVT and PE. Hyperlipidemia. Hypertension. Hypothyroidism. IgG deficiency. Lyme disease. - Surgical History Reports: mastectomy Additional surgical history: Elbow surgery 1989. Wrist surgery 2010 - Family History Additional family history: Breast cancer. Malignant melanoma - Social History Smoking Status: Never smoked Additional social history: Drinks alcohol - currently. Non-smoker. No recreational drug use Review of Systems Review of Systems: ROS: 10pt was reviewed & negative except for what was stated in HPI & below Physical Exam Physical Exam: Temp Pulse Resp BP Pulse Ox 36.6 C 94 18 174/107 H 95 03/18/18 04:22 03/18/18 05:21 03/18/18 05:21 03/18/18 05:21 03/18/18 05:21 Constitutional: appears nourished, uncomfortable Eyes: PERRL, EOMI Ears, Nose, Mouth, Throat: moist mucous membranes, no oral mucosal ulcers Cardiovascular: regular rate and rhythym, no murmur, rub, or gallop Respiratory: no respiratory distress, clear to auscultation Gastrointestinal: normoactive bowel sounds, soft, non-tender abdomen Skin: warm, normal color Neurologic: AAOx3, CN II-XII Intact Psychiatric: interacting appropriately, not anxious Lab Data & Imaging Review 03/18/18 06:10 03/18/18 04:25 Turbidity Cancelled 03/18/18 06:10 Sodium REJ 03/18/18 04:25 Potassium REJ 03/18/18 04:25 Chloride REJ 03/18/18 04:25 Carbon Dioxide REJ 03/18/18 04:25 Anion Gap REJ 03/18/18 04:25 BUN REJ 03/18/18 04:25 Creatinine REJ 03/18/18 04:25 Estimated GFR REJ 03/18/18 04:25 Glucose REJ 03/18/18 04:25 Calcium REJ 03/18/18 04:25 Specimen Hemolysis Cancelled 03/18/18 06:10 Assessment & Plan Assessment: 58 yo F w/ breast CA and hx DVT presents with nausea and vomiting. Plan: 1. Nausea, vomiting - Unclear etiology, possibly a component of cyclic vomiting but could also be viral. - Admit for observation - Check BMP, LFTs now - mIVF, anti-emetics PRN (Zofran, Phenergan, Ativan) - Will also try capsaicin 2. Hx breast CA - S/p bilateral mastectomy 3. DVT/PE - On Xarelto 4. Hypothyroid - Continue LTX Diet - Clears, mIVF, ADAT Code - Full Ppx - Xarelto Dispo - Admit under observation status
[2018-03-18 06:42] LABS: PLATELET COUNT 323 10^3/uL (150-400)
[2018-03-18] MEDS: PROMETHAZINE HCL 25 MG/ML INJ IVP PRN ×3 (09:47→22:36)
[2018-03-18] MEDS ORDERED: PROMETHAZINE HCL 25 MG TAB PO PRN (09:53)
[2018-03-18] MEDS ORDERED: HYDROCHLOROTHIAZIDE 25 MG TAB PO PRN (09:53)
[2018-03-18] MEDS ORDERED: DICLOFENAC SODIUM 1% 100 GM GEL TP PRN (09:53)
[2018-03-18] MEDS ORDERED: LIDOCAINE 4%/MENTHOL 1% PATCH TD PRN (10:15)
[2018-03-18] MEDS ORDERED: PROMETHAZINE HCL 25 MG/ML INJ IVP ONE (10:16)
[2018-03-18] MEDS: OXYCODONE/APAP 5/325 TAB PO PRN ×2 (12:41→19:47)
[2018-03-18] MEDS: RIVAROXABAN 20 MG TAB PO SCH (12:41)
[2018-03-18] MEDS: ALPRAZolam 1 MG TAB PO PRN (12:42)
[2018-03-18] MEDS: LORazepam 2 MG/ML INJ IVP PRN ×2 (15:10→19:46)
[2018-03-18] MEDS: TRIAMTERENE/HCTZ 37.5/25 1 EACH CAP PO SCH (15:14)
--- NOTE | 2018-03-18 15:50 | HOSPPROG ---
Hospitalist Progress Note Assessment/Plan: 58 yo F w/ breast CA and hx DVT presents with nausea and vomiting. Plan: 1. Nausea, vomiting - Unclear etiology, possibly a component of cyclic vomiting but could also be viral. - Admit for observation - BMP, LFTs stable - mIVF, anti-emetics PRN (Zofran, Phenergan, Ativan) - Will also try capsaicin 2. Hx breast CA - S/p bilateral mastectomy 3. DVT/PE - On Xarelto 4. Hypothyroid - Continue LTX 5. HTN -restart home meds -add PRN Diet - Clears, mIVF, ADAT Code - Full Ppx - Xarelto Dispo - Admit under observation status >35 minutes spent D/W pt PCP, hx of ETOH and THC. Dr Jessica Parsons [phone] Subjective: Still feeling ill. Still vomitting. Objective: Vital Signs Temp Pulse Resp BP Pulse Ox 36.8 C 103 H 18 183/121 H 96 03/18/18 11:07 03/18/18 11:07 03/18/18 11:07 03/18/18 11:07 03/18/18 11:07 Laboratory Results 03/18/18 06:10 03/18/18 06:10 03/17/18 03/18/18 03/19/18 05:59 05:59 05:59 Intake Total 2850 Output Total 900 Balance 1950 - Physical Exam Constitutional: no apparent distress, appears nourished, not in pain Eyes: PERRL, anicteric sclera, EOMI Ears, Nose, Mouth, Throat: moist mucous membranes, hearing normal, ears appear normal Cardiovascular: No JVD, No tachycardia, No edema Respiratory: no respiratory distress, no rales or rhonchi, reduced air movement Gastrointestinal: No tenderness, No ascites, No guarding Skin: warm, normal color, No mottled Musculoskeletal: normal joint ROM, no joint effusions, generalized weakness Psychiatric: not encephalopathic, anxious, poor insight, poor judgement ICD10 Worksheet Patient Problems: Problems Problem Status Onset Nausea & vomiting Acute Abdominal pain Acute Dehydration Acute Trimalleolar fracture of ankle, closed Acute Fall Acute HIGINIO drain bleeding Acute Hypotensive episode Acute Anemia Acute
[2018-03-18] MEDS: hydrALAZINE 20 MG/ML VIAL IVP PRN ×2 (16:27→22:36)
[2018-03-18] MEDS ORDERED: ZOLPIDEM TARTRATE 5 MG TAB PO SCH (21:00)
[2018-03-19] MEDS: ALPRAZolam 1 MG TAB PO PRN (01:36)
[2018-03-19] MEDS: LORazepam 2 MG/ML INJ IVP PRN (03:46)
[2018-03-19] MEDS: OXYCODONE/APAP 5/325 TAB PO PRN (03:46)
[2018-03-19] MEDS: hydrALAZINE 20 MG/ML VIAL IVP PRN (05:07)
[2018-03-19] MEDS: PROMETHAZINE HCL 25 MG/ML INJ IVP PRN (05:07)
[2018-03-19] MEDS ORDERED: LEVOTHYROXINE 25 MCG TAB PO SCH (06:00)
[2018-03-19] MEDS: TRIAMTERENE/HCTZ 37.5/25 1 EACH CAP PO SCH (07:26)
[2018-03-19] MEDS: RIVAROXABAN 20 MG TAB PO SCH (07:27)
[2018-03-19 07:51] VITALS: BP 158/98
[2018-03-19] MEDS ORDERED: SERTRALINE HCL 50 MG TAB PO SCH (09:00)
[2018-03-19] MEDS ORDERED: HYDROCHLOROTHIAZIDE 25 MG TAB PO SCH (09:00)
[2018-03-19] MEDS ORDERED: PANTOPRAZOLE SODIUM 40 MG TAB PO SCH (09:00)
[2018-03-19] MEDS ORDERED: ANASTROZOLE 1 MG TAB PO SCH (09:00)
--- NOTE | 2018-03-19 15:13 | GDS ---
DISCHARGE DIAGNOSES: 1. Nausea, vomiting. 2. History of breast cancer. 3. History of deep vein thrombosis. 4. History of hypothyroidism. 5. Hypertension. 6. History of alcohol abuse. PHYSICAL EXAM: GENERAL: The patient is alert. VITAL SIGNS: Afebrile at 36.5, pulse is 107, respirat ory rate 16, blood pressure is 158/98, she is saturating 95% on room air. I have seen and evaluated the patient on the day of discharge. HOSPITAL COURSE: The patient is a 58-year-old female who presented to the emergency room with compla ints of nausea and vomiting. She was evaluated and diagnosed with nausea and vomiting of unclear jakob ology. During this hospitalization, she had supportive management. Her nausea and vomiting have com pletely resolved. She is tolerating a regular diet. Again, the etiology is unclear. This could be a component of possible cyclic vomiting or secondary to the patient's history of continued alcohol us e and THC consumption. She will continue on her previously prescribed home medications. Her history of breast cancer as well as DVT and hypothyroidism are all stable at the time of disposition. She w as mildly hypertensive during this hospitalization, but this has resolved once her home medications w ere re-initiated and she was able to tolerate oral intake. She will follow up with her primary care physician, Dr. Jessica Parsons, as well as get assistance in the outpatient setting for other chronic co nditions. DISCHARGE MEDICATIONS: Please refer to EMR form. I have not provided prescriptions for the patient at the time of disposition and I have instructed her to discontinue her Ambien use. /[id number]/MODL
== END 2018-03-19 10:26 | disposition home or self-care (01) ==
LOC: EDUNIT# → F3E 06:37
PROVIDERS: ADMIT Student in an Organized Health Care Education/Training Program; ATTEND Internal Medicine
DX: R11.2 Nausea with vomiting, unspecified (principal); I10 Essential (primary) hypertension; E03.9 Hypothyroidism, unspecified; Z86.718 Personal history of other venous thrombosis and embolism; Z85.3 Personal history of malignant neoplasm of breast; Z79.01 Long term (current) use of anticoagulants; Z90.13 Acquired absence of bilateral breasts and nipples
CPT/HCPCS: 96361; 96374; 96375; 96376; 99285; G0378; J0360; J1630; J2060; J2405; J2550

== ENCOUNTER → 2018-04-03 | Outpatient (CLI) | payer OTHER | LOC: FIMAGING 08:31 | PROVIDERS: ATTEND Internal Medicine Hematology & Oncology | DX: Z13.820 Encounter for screening for osteoporosis (principal); M85.89 Other specified disorders of bone density and structure, multiple sites ==